=== PATIENT | female | born 1945 | race Caucasian/White ===

== ENCOUNTER → 2017-03-02 | Outpatient (CLI) | payer OTHER ==
[2017-03-02 10:05] LABS: ALT/SGPT 24 U/L (12-78); AST/SGOT 19 U/L (15-37); BLOOD UREA NITROGEN 21 mg/dl (7-18); BUN/CREATININE RATIO 26.3 (10-20); CALCIUM 8.8 mg/dl (8.5-10.1); CARBON DIOXIDE 27 mmol/L (21-32); CHLORIDE 104 mmol/L (98-107); CREATININE 0.78 mg/dl (0.60-1.20); GLUCOSE 134 mg/dl (70-99); HDL CHOLESTEROL 51 mg/dl; SODIUM 137 mmol/L (136-145)
[2017-03-02 10:08] LABS: ALB/GLOB RATIO 0.8 (0.9-2); ALKALINE PHOSPHATASE 87 U/L (45-117); CHOLESTEROL 160 mg/dl (0-200); CHOLESTEROL/HDL RATIO 3.1; LDL CHOLESTEROL CALCULATED 83 mg/dl; TRIGLYCERIDES 129 mg/dl (0-150); VERY LOW DENSITY LIPOPROT CALC 26 mg/dl
[2017-03-02 10:11] LABS: ESTIMATED AVERAGE GLUCOSE 137 mg/dl; HA1C FLAG Normal (Normal)
== END | disposition home or self-care (01) ==
LOC: C.LAB1850 07:27
PROVIDERS: ATTEND Internal Medicine
DX: Z00.00 Encounter for general adult medical examination without abnormal findings (principal); E11.9 Type 2 diabetes mellitus without complications; I10 Essential (primary) hypertension

== ENCOUNTER → 2017-07-28 | Outpatient (CLI) | payer OTHER ==
[2017-07-28 09:59] LABS: HEMOGLOBIN A1C 6.5 % (4.5-5.6)
[2017-07-28 10:15] LABS: ALBUMIN 3.8 gm/dl (3.4-5.0); ALT/SGPT 30 U/L (12-78); BLOOD UREA NITROGEN 19 mg/dl (7-18); CALCIUM 9.5 mg/dl (8.5-10.1); CARBON DIOXIDE 26 mmol/L (21-32); CHOLESTEROL 187 mg/dl (0-200); GLUCOSE 145 mg/dl (70-99); POTASSIUM 3.4 mmol/L (3.5-5.1); SODIUM 133 mmol/L (136-145)
[2017-07-28 10:17] LABS: ALKALINE PHOSPHATASE 72 U/L (45-117); AST/SGOT 25 U/L (15-37); LDL CHOLESTEROL CALCULATED 103 mg/dl; TOTAL PROTEIN 8.5 gm/dl (6.4-8.2)
== END | disposition home or self-care (01) ==
LOC: C.LAB1850 08:22
PROVIDERS: ATTEND Internal Medicine
DX: Z00.00 Encounter for general adult medical examination without abnormal findings (principal); E11.9 Type 2 diabetes mellitus without complications; I10 Essential (primary) hypertension

== ENCOUNTER → 2017-08-16 | Outpatient (CLI) | payer OTHER | END | disposition home or self-care (01) | LOC: C.LAB1850 09:44 | PROVIDERS: ATTEND Internal Medicine | DX: E87.6 Hypokalemia (principal) ==

== ENCOUNTER → 2017-09-06 | Outpatient (CLI) | payer OTHER ==
--- NOTE | 2017-09-06 14:56 | MAMMOGRAPHY REPORT ---
BILATERAL DIGITAL SCREENING MAMMOGRAM TOMOSYNTHESIS WITH CAD: 09/06/2017 CLINICAL HISTORY: Routine screening. Patient has no complaints. TECHNIQUE: Breast tomosynthesis in addition to standard 2D mammography was performed. Current study was also evaluated with a Computer Aided Detection (CAD) system. COMPARISON: Comparison is made to exams dated: 06/03/2015 mammogram, 06/11/2016 mammogram, 4 mammogram, 05/30/2013 mammogram, and 05/29/2012 mammogram - [facility]. BREAST COMPOSITION: There are scattered areas of fibroglandular density in both breasts. FINDINGS: No suspicious masses, calcifications, or areas of architectural distortion are noted in ei ther breast. There has been no significant interval change compared to prior exams. Bilateral asymme tries and scattered bilateral benign-appearing calcifications are not significantly changed. IMPRESSION: ACR BI-RADS CATEGORY 2: BENIGN There is no mammographic evidence of malignancy. A 1 year screening mammogram is recommended. The pa tient will receive written notification of the results. Approximately 10% of breast cancers are not detected with mammography. A negative mammographic report should not delay biopsy if a clinically suggestive mass is present. Jacqueline Hess M.D. ah/:09/06/2017 14:04:10 Clinical Assessment Manager: Sinai KRAMER(Viktor)(M), [facility] letter sent: Normal 1/2 BI-RADS Code: ACR BI-RADS Category 2: Benign
== END | disposition home or self-care (01) ==
LOC: C.MAMM 12:15
PROVIDERS: ATTEND Internal Medicine
DX: Z12.31 Encounter for screening mammogram for malignant neoplasm of breast (principal)

== ENCOUNTER → 2018-01-24 | Outpatient (CLI) | payer OTHER ==
[2018-01-24 09:51] LABS: HEMATOCRIT 38.1 % (37-47); HEMOGLOBIN 12.5 g/dL (12.0-16.0); MEAN CELL VOLUME 89.4 fL (80-100); MEAN CORPUSCULAR HEMOGLOBIN 29.3 pg (25-34); MEAN CORPUSCULAR HGB CONC 32.8 g/dl (32-36); MEAN PLATELET VOLUME 10.9 fL (7.4-10.4); PLATELET COUNT 210 K/uL (130-400); RED CELL DISTRIBUTION WIDTH CV 14.6 % (11.5-14.5); RED CELL DISTRIBUTION WIDTH SD 47.6 fL (36.4-46.3); WHITE BLOOD COUNT 6.51 K/uL (4.8-10.8)
[2018-01-24 10:08] LABS: ALBUMIN 3.5 gm/dl (3.4-5.0); ALKALINE PHOSPHATASE 76 U/L (45-117); ALT/SGPT 29 U/L (12-78); AST/SGOT 19 U/L (15-37); BLOOD UREA NITROGEN 20 mg/dl (7-18); CALCIUM 8.4 mg/dl (8.5-10.1); CARBON DIOXIDE 24 mmol/L (21-32); CHOLESTEROL 157 mg/dl (0-200); CREATININE 0.79 mg/dl (0.60-1.20); GLUCOSE 144 mg/dl (70-99); LDL CHOLESTEROL CALCULATED 78 mg/dl; POTASSIUM 3.9 mmol/L (3.5-5.1); SODIUM 136 mmol/L (136-145); TOTAL PROTEIN 7.7 gm/dl (6.4-8.2)
[2018-01-24 10:20] LABS: HEMOGLOBIN A1C 6.6 % (4.5-5.6)
== END | disposition home or self-care (01) ==
LOC: C.LAB1850 07:53
PROVIDERS: ATTEND Internal Medicine
DX: Z00.00 Encounter for general adult medical examination without abnormal findings (principal); E11.9 Type 2 diabetes mellitus without complications; I10 Essential (primary) hypertension; E87.6 Hypokalemia

== ENCOUNTER 2018-12-25 15:19 | Inpatient (IN) ==
[2018-12-25] MEDS ORDERED: ASPIRIN CHEW 324 MG PO STA (15:58)
[2018-12-25 16:09] LABS: Basophils # (auto) 0.02 K/uL (0-0.2); Basophils % (auto) 0.2 %; Eosinophils # (auto) 0.07 K/uL (0-0.5); Eosinophils % (auto) 0.8 %; Hematocrit (blood only) 34.1 % (37-47); Hemoglobin 11.4 g/dL (12.0-16.0); Immature Granulocytes # (auto) 0.02 K/uL (0.00-0.02); Immature Granulocytes % (auto) 0.2 %; Lymphocytes # (auto) 2.38 K/uL (1.2-3.4); Lymphocytes % (auto) 25.8 %; Mean Corpuscular Hgb Conc 33.4 g/dL (32-36); Mean Corpuscular Volume 90.5 fL (80-100); Mean Platelet Volume 10.5 fL (7.4-10.4); Monocytes # (auto) 0.45 K/uL (0.11-0.59); Monocytes % (auto) 4.9 %; Neutrophils # (auto) 6.29 K/uL (1.4-6.5); Neutrophils % (auto) 68.1 %; Platelet Count 217 K/uL (130-400); RDW Coefficient of Variation 14.9 % (11.5-14.5); RDW Standard Deviation 48.7 fL (36.4-46.3); Red Blood Count 3.77 M/uL (4.2-5.4); White Blood Count 9.23 K/uL (4.8-10.8)
--- NOTE | 2018-12-25 16:17 | XRay Report ---
XR chest 1V portable CLINICAL HISTORY: chest heavy, a fib COMPARISON STUDY: Chest radiograph July 28, 2018. FINDINGS: Patient is rotated. Lung volumes are normal. Lungs are clear. There is no pneumothorax or p leural effusion. Cardiac size is normal. Mediastinal contours are normal. There is no evidence for pu lmonary edema. IMPRESSION: No acute cardiopulmonary findings. Electronically signed by: Jairo Zavala M.D. 12/25/2018 4:16 PM
[2018-12-25 16:31] LABS: Albumin Level 3.3 gm/dl (3.4-5.0); BUN Creatinine Ratio 33.4 (10-20); Calcium 8.9 mg/dl (8.5-10.1); Creatinine Clr Calc Pharmacy 46.4 ml/min; Est GFR (African American) 47.2; Est GFR (Non-African American) 40.8; Magnesium 1.9 mg/dl (1.8-2.4); Potassium 4.1 mmol/L (3.5-5.1)
[2018-12-25 16:47] LABS: Albumin Globulin Ratio 0.7 (0.9-2); Bilirubin,Total 0.4 mg/dl (0.2-1); Globulin 4.5 gm/dl (2.5-4.0); Phosphorus 2.5 mg/dl (2.5-4.9); Total Protein 7.8 gm/dl (6.4-8.2); Troponin I 13.3 ng/ml (0-0.045)
--- NOTE | 2018-12-25 17:32 | History & Physical Report ---
Date of Service December 25, 2018 Assessment & Plan (1) Elevated troponin: 73yo pleasant woman with a PMHx of Afib, HTN, HLD, DMII who presents with chest heaviness found to have elevated troponins. Elevated Trop -trend x3 -consult cardiology -?possible cath tomorrow -NPO after midnight Afib -currently NSR -Hold anticoagulation with eliquis. Cont metoprolol, digoxin (AM level pending) -TSH normal -Last ECHO Jul 2018 shows EF of 60-65% with L ventricular hypertrophy, mild-mod MR and mod dilated L atrium. HTN -well controlled currently -On metoprolol for rate control of a fib, will cont -Hold home losartan-HCTZ DMII -ISS. Hold home metformin HLD -continue atorvastatin, increased to 80 mg from 20mg Anemia -cont home iron 325 mg daily -stable H/H, cont trend FEN/GI: NPO after midnight DVT Prophylaxis: Eliquis Code Status: Full code Dispo: Tele History of Present Illness Primary Care Provider: Brian Byrnes MD 73 y/o F with PMH Afib, DM2, HTN, HLD presents to [facility] with complaints of chest pressure. Of note, pt was admitted in Jul 2018 for new onset Afib with RVR and was dc'd on Eliquis 5 mg BID and metoprolol 75 mg BID. Pt states that this AM, felt heaviness in her chest all of a sudden. Checked home BP cuff, which alerted pt that it detected an irregular rhythm. Pt subsequently called cardiology office, which recommended to pt to recheck BP and come into ER if still irregular rhythm. Pt has associated R arm achiness, and admits to sweating, nausea, and fatigue. Last such occurrence was in September, which resolved on its own. Pt notes recent travel to [facility] for wedding over the weekend and had some nausea on car ride home yesterday, which she states she normally only gets when she feels she is in A fib. Pt was last seen by Dr. Uribe 11/14 and recommended to cont current Afib management and follow-up in 12 months. Pt denies any other acute concerns or complaints. ER Course: EKG: NSR, T wave inversion anterolateral leads. CXR- No acute cardiopulmonary findings. Pt given ASA 324 mg. Labs remarkable for trop 13.3. Surgical Hx: Hysterectomy. Social: No history of drinking or smoking - lives with her . Family: Mother had a history of AF, father following an DE. Allergies Allergy/AdvReac Type Severity Reaction Status Date / Time Sulfa (Sulfonamide Allergy Swelling Unverified 12/25/18 16:59 Antibiotics) of Lip/Tongue/Throat sulfamethoxazole Allergy Swelling Unverified 12/25/18 16:59 [From Bactrim] of Lip/Tongue/Throat trimethoprim [From Bactrim] Allergy Swelling Unverified 12/25/18 16:59 of Lip/Tongue/Throat Home Medications Home Medications Medication Instructions Recorded Confirmed Type Restasis 1 drp OPB BID 07/25/18 12/25/18 History atorvastatin 20 mg PO HS 07/25/18 12/25/18 History cholecalciferol (vitamin D3) 2,000 unit PO QAM 07/25/18 12/25/18 History [Vitamin D3] latanoprost 1 drp OPB PM 07/25/18 12/25/18 History losartan-hydrochlorothiazide 1 tab PO QAM 07/25/18 12/25/18 History metformin 1,000 mg PO BIDM 07/25/18 12/25/18 History multivitamin 1 tab PO QAM 07/25/18 12/25/18 History omega 6-vdm-dvg-fish oil [Fish Oil] 1 cap PO QAM 07/25/18 12/25/18 History potassium chloride 10 meq PO QAM 07/25/18 12/25/18 History apixaban [Eliquis] 5 mg PO BID #30 tab 08/01/18 12/25/18 Rx ascorbic acid (vitamin C) 250 mg 250 mg PO DAILY tab 11/28/18 12/25/18 History tablet digoxin 125 mcg tablet 125 mcg PO DAILY #90 tab 11/28/18 12/25/18 History ferrous sulfate 325 mg (65 mg 325 mg PO DAILY tab 11/28/18 12/25/18 History iron) tablet metoprolol tartrate 75 mg tablet 75 mg PO BID #30 tab 11/28/18 12/25/18 History docusate sodium [Stool Softener] 100 mg PO DAILY 12/25/18 12/25/18 History Past Med/Surg History Medical History A-fib (Acute) Anemia (Acute) Diabetes mellitus (Acute) Diverticulosis (Acute) Hypertension (Acute) Hypokalemia (Acute) Low back ache (Acute) On anticoagulant therapy (Acute) Acute kidney injury (Inactive) Acute pyelonephritis (Inactive) HLD (hyperlipidemia) HTN (hypertension) Family History Other Family history non-contributory Social History Preferred Language: Arabic Communication Ability: Effective Beliefs That Will Affect Care: Pentec[employer]al Pentec[employer]al Beliefs: [facility] Hospitalist marital status: Current Living Situation: Spouse current occupational status: retired Feels Safe at Home: Yes Smoking Status: Never smoker Hx Alcohol Use: No Hx Substance Use: No Review of Systems Review of Systems: All systems reviewed & are unremarkable except as noted in HPI & below Physical Exam Constitutional: WD/WN, vitals as above Eyes: PERRL, conjunctivae normal, anicteric sclerae ENMT: external ear and nose normal, oropharynx normal Respiratory: normal respiratory effort, lungs clear to auscultation Cardiovascular: RRR, no murmur, no edema Mild tenderness to deep palpation over sternum Gastrointestinal (Abdomen): normal bowel sounds, soft, nontender, no hepatosplenomegaly Skin: no rashes, warm and dry Psychiatric: A+Ox3, euthymic affect Lymphatic: No LE swelling, no calf tenderness Results & Data Vital Signs (Past 12 Hours) Vital Signs Temp Pulse Resp BP Pulse Ox 12/25/18 16:23 98 12/25/18 15:26 36.7 C 140 H 20 109/67 99 Laboratory Results Laboratory Results - last 24 hr 12/25/18 12/25/18 15:49 15:49 WBC 9.23 RBC 3.77 L Hgb 11.4 L Hct 34.1 L MCV 90.5 MCH 30.2 MCHC 33.4 RDW Std Deviation 48.7 H RDW Coeff of Isela 14.9 H Plt Count 217 MPV 10.5 H Immature Gran % (Auto) 0.2 Neut % (Auto) 68.1 Lymph % (Auto) 25.8 [place] % (Auto) 4.9 Eos % (Auto) 0.8 Baso % (Auto) 0.2 Immature Gran # (Auto) 0.02 Neut # (Auto) 6.29 Lymph # (Auto) 2.38 [place] # (Auto) 0.45 Eos # (Auto) 0.07 Baso # (Auto) 0.02 Sodium 137 Potassium 4.1 Chloride 106 Carbon Dioxide 21 Anion Gap 10.0 BUN 43 H Creatinine 1.29 H Est Cr Clr Drug Dosing 46.4 Est GFR ( Amer) 47.2 Est GFR (Non-Af Amer) 40.8 BUN/Creatinine Ratio 33.4 H Glucose 255 H Calcium 8.9 Phosphorus 2.5 Magnesium 1.9 Total Bilirubin 0.4 AST 45 H ALT 30 Alkaline Phosphatase 91 Troponin I 13.300 H* Total Protein 7.8 Albumin 3.3 L Globulin 4.5 H Albumin/Globulin Ratio 0.7 L TSH 3.550 Code Status & VTE Plan Code Status Full Code Supervising Physician Co-Signing Physician Notes Resident Physician Supervision Note: I discussed with Dr Keren Singh and agree with findings and plan as documented in the note. Any exceptions or clarifications are listed here: None Patient presented with atypical cardiac symptoms atrial fibrillation with rapid response as documented in the home monitor chest discomfort and some right arm discomfort mild nausea. She is a history of A. fib so the rapid heart rate was not overly concerning for her with the chest discomfort prompted her to present to the ER where she had some new EKG changes that were non-infarction and elevation of her troponin. Vital signs are stable Cardiac exam is regular with a systolic murmur Lungs are clear without crackles Abdomen is normoactive bowel sounds soft and nontender Extremities without edema Acute DE likely N STEMI previous history of A. fib RVR. We will hold patient's Eliquis and start heparin likely in the morning but will start at this evening of her chest pain recurs continuing her beta-bridget aspirin and oxygen therapy. Cardiology consultation for risk stratification which could include left heart cath versus stress testing. Holding her metformin insulin sliding scale watching her blood pressure and reinstituting ARB if needed Documented By: Kofi Interiano PG Care Time/CCT Total # of Minutes Spent Total Time Spent with Patient: Total time spent is greater than 50% in coordination of care (as documented) at patient's floor/unit and/or counseling patient: Resident Activity Tracking Resident Involvement: Resident Care Provided Care Provided: Adult Hospital Medicine
--- NOTE | 2018-12-25 19:05 | Progress Note ---
Date of Service December 25, 2018 Received turnover for patient regarding her chest pressure and elevated troponin. Spoke with both admitting doctors. Patient will have her Eliquis held. Her last dose was this morning. No reports of bleeding. Discussed case with Dr. Delgado. Will start heparin without bolus this evening. Mehreen Soares, PGY3 Overnight call Results & Data Vital Signs (Past 12 Hours) Vital Signs Temp Pulse Resp BP Pulse Ox 12/25/18 18:30 67 24 120/64 99 12/25/18 18:00 72 17 111/59 L 98 12/25/18 17:49 70 20 123/67 98 12/25/18 17:30 73 17 99 12/25/18 17:00 65 16 98 12/25/18 16:30 72 22 97 12/25/18 16:24 77 22 115/62 12/25/18 16:23 98 12/25/18 16:00 84 25 H 98 12/25/18 15:54 81 17 96 12/25/18 15:26 36.7 C 140 H 20 109/67 99
--- NOTE | 2018-12-25 19:19 | Emergency Department Note ---
Entered by Ghada Mckeon acting as a scribe for History of Present Illness General Chief complaint: Cardiac Assessment Stated complaint: IRRGULAR HEARTBEAT AFIB PT,CHEST HEAVINESS Source: patient History of Present Illness Onset (ago): hour(s) (just prior to arrival) Location: chest Radiation: extremity (right upper achiness) Severity: similar to prior episodes Pain Consistency: + other (episode ) Maximum Pain Intensity: 2 Quality: + other (heaviness) Associated symptoms: + diaphoresis and + nausea/vomiting (positive nausea; negative vomiting) The patient is a 73 year old female who presents to the Emergency Room with complaints of an episode of chest pain that began just prior to arrival. The patient describes this pain as heaviness. She states that she has some achiness in her right arm. The patient reports feeling nauseous and sweating during this time. The patient states that this is similar to prior episodes of atrial fib. The patient states that over the past several days she has taken her medication later than usual over the past several days. She denies recent alcohol. The patient states that she is on Eliquis and metoprolol. Home Medications Home Medications Medication Instructions Recorded Confirmed Type Restasis 1 drp OPB BID 07/25/18 12/25/18 History atorvastatin 20 mg PO HS 07/25/18 12/25/18 History cholecalciferol (vitamin D3) 2,000 unit PO QAM 07/25/18 12/25/18 History [Vitamin D3] latanoprost 1 drp OPB PM 07/25/18 12/25/18 History losartan-hydrochlorothiazide 1 tab PO QAM 07/25/18 12/25/18 History metformin 1,000 mg PO BIDM 07/25/18 12/25/18 History multivitamin 1 tab PO QAM 07/25/18 12/25/18 History omega 7-hox-kxl-fish oil [Fish Oil] 1 cap PO QAM 07/25/18 12/25/18 History potassium chloride 10 meq PO QAM 07/25/18 12/25/18 History apixaban [Eliquis] 5 mg PO BID #30 tab 08/01/18 12/25/18 Rx ascorbic acid (vitamin C) 250 mg 250 mg PO DAILY tab 11/28/18 12/25/18 History tablet digoxin 125 mcg tablet 125 mcg PO DAILY #90 tab 11/28/18 12/25/18 History ferrous sulfate 325 mg (65 mg 325 mg PO DAILY tab 11/28/18 12/25/18 History iron) tablet metoprolol tartrate 75 mg tablet 75 mg PO BID #30 tab 11/28/18 12/25/18 History docusate sodium [Stool Softener] 100 mg PO DAILY 12/25/18 12/25/18 History Allergies Allergy/AdvReac Type Severity Reaction Status Date / Time Sulfa (Sulfonamide Allergy Swelling Unverified 12/25/18 16:59 Antibiotics) of Lip/Tongue/Throat sulfamethoxazole Allergy Swelling Unverified 12/25/18 16:59 [From Bactrim] of Lip/Tongue/Throat trimethoprim [From Bactrim] Allergy Swelling Unverified 12/25/18 16:59 of Lip/Tongue/Throat Past Med/Surg History Medical History A-fib (Acute) Anemia (Acute) Diabetes mellitus (Acute) Diverticulosis (Acute) Hypertension (Acute) Hypokalemia (Acute) Low back ache (Acute) On anticoagulant therapy (Acute) Acute kidney injury (Inactive) Acute pyelonephritis (Inactive) HLD (hyperlipidemia) HTN (hypertension) Family History Other Family history non-contributory Social History Preferred Language: Indonesian Communication Ability: Effective 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 and A total of 10 systems reviewed and were otherwise negative Physical Exam Vital Signs Vital Signs - 24 hr 12/25/18 15:26 12/25/18 15:54 12/25/18 16:00 Temperature 36.7 C Temperature Source Oral Sepsis Recent Fever Within 48 Hours No Sepsis Action Taken by Nursing No Action Required Pulse Rate 140 H 81 84 Pulse Rate from SpO2 Sensor 82 84 Respiratory Rate 20 17 25 H Blood Pressure 109/67 Blood Pressure Mean 81 Pulse Oximetry 99 96 98 Oxygen Delivery Method Room Air 12/25/18 16:23 12/25/18 16:24 12/25/18 16:30 Temperature Temperature Source Sepsis Recent Fever Within 48 Hours Sepsis Action Taken by Nursing Pulse Rate 77 72 Pulse Rate from SpO2 Sensor 72 Respiratory Rate 22 22 Blood Pressure 115/62 Blood Pressure Mean 79 Pulse Oximetry 98 97 Oxygen Delivery Method Room Air 12/25/18 17:00 12/25/18 17:30 12/25/18 17:49 Temperature Temperature Source Sepsis Recent Fever Within 48 Hours Sepsis Action Taken by Nursing Pulse Rate 65 73 70 Pulse Rate from SpO2 Sensor 66 75 72 Respiratory Rate 16 17 20 Blood Pressure 123/67 Blood Pressure Mean 85 Pulse Oximetry 98 99 98 Oxygen Delivery Method 12/25/18 18:00 Temperature Temperature Source Sepsis Recent Fever Within 48 Hours Sepsis Action Taken by Nursing Pulse Rate 72 Pulse Rate from SpO2 Sensor 72 Respiratory Rate 17 Blood Pressure 111/59 L Blood Pressure Mean 76 Pulse Oximetry 98 Oxygen Delivery Method Vital signs reviewed. General: Somewhat ill-appearing elderly 73 year old female, in no significant distress. Obese. HEENT: No scleral icterus, PERRLA, neck supple. Atraumatic. Cardiovascular: Regular rate and rhythm, no extra sounds. Pulmonary: Clear to auscultation bilaterally, normal work of breathing. Abdomen: Obese, soft, nontender, nondistended, positive bowel sounds. Musculoskeletal: Atraumatic. Minimal edema in the bilateral lower extremities. Neurologic: Patient awake alert and oriented x 3 Skin: Warm, dry, no rash Course 1558: Past medical records reviewed. The patient was evaluated in room C8. A complete history and physical exam was performed. 1704: I discussed the case with Dr. Interiano[facility] Hospitalist who accepts the patient for further evaluation. 1708: I checked on and updated the patient on all results. The patient is in agreement with the treatment plan. Administered Medications Atorvastatin Calcium (Lipitor) 80 mg PO HS [facility] Stop: 01/24/19 20:59 Last Admin: 12/25/18 21:04 Dose: 80 mg Documented by: [id number] Heparin Sodium/Dextrose (Heparin Sodium/Dextrose) 25,000 units in 500 mls @ 27 mls/hr IV .[id number] SEAN; Protocol Stop: 01/24/19 21:14 Last Admin: 12/25/18 21:17 Dose: 1,350 units/hr, 27 mls/hr Documented by: [id number] Cosigned by: [id number] Latanoprost (Xalatan Oph) 1 drops OPB PM SEAN Stop: 01/24/19 20:59 Last Admin: 12/25/18 21:05 Dose: 1 drops Documented by: [id number] Metoprolol Tartrate (Lopressor) 75 mg PO BID SEAN Stop: 01/24/19 20:59 Last Admin: 12/25/18 21:09 Dose: 75 mg Documented by: [id number] Discontinued Medications Aspirin (Aspirin) 324 mg PO NOW STA Stop: 12/25/18 15:59 Last Admin: 12/25/18 16:22 Dose: 324 mg Documented by: [id number] Insulin Aspart (Novolog Flexpen) 0 units SC 2100 ONE Stop: 12/25/18 21:01 Last Admin: 12/25/18 21:11 Dose: 9 units Documented by: [id number] Cosigned by: [id number] Medical Decision Making Differential Diagnosis Differential diagnosis: Etiologies such as premature contractions, electrolyte abnormality, cardiac dysrhythmia, thyroid dysfunction, pulmonary embolism, infection, gastrointestinal, as well as others were entertained. Medical Records Attestation: I reviewed the patient's medical records. Home Medications Current Medication List: was personally reviewed by me Laboratory Data Attestation: I reviewed the patient's lab results. Result diagrams: 12/25/18 15:49 12/25/18 15:49 Lab Results 12/25/18 12/25/18 Range/Units 15:49 15:49 WBC 9.23 (4.8-10.8) K/uL RBC 3.77 L (4.2-5.4) M/uL Hgb 11.4 L (12.0-16.0) g/dL Hct 34.1 L (37-47) % MCV 90.5 (80-100) fL MCH 30.2 (25-34) pg MCHC 33.4 (32-36) g/dL RDW Std Deviation 48.7 H (36.4-46.3) fL RDW Coeff of Isela 14.9 H (11.5-14.5) % Plt Count 217 (130-400) K/uL MPV 10.5 H (7.4-10.4) fL Immature Gran % (Auto) 0.2 % Neut % (Auto) 68.1 % Lymph % (Auto) 25.8 % [place] % (Auto) 4.9 % Eos % (Auto) 0.8 % Baso % (Auto) 0.2 % Immature Gran # (Auto) 0.02 (0.00-0.02) K/uL Neut # (Auto) 6.29 (1.4-6.5) K/uL Lymph # (Auto) 2.38 (1.2-3.4) K/uL [place] # (Auto) 0.45 (0.11-0.59) K/uL Eos # (Auto) 0.07 (0-0.5) K/uL Baso # (Auto) 0.02 (0-0.2) K/uL Sodium 137 (136-145) mmol/L Potassium 4.1 (3.5-5.1) mmol/L Chloride 106 (98-107) mmol/L Carbon Dioxide 21 (21-32) mmol/L Anion Gap 10.0 (3-11) BUN 43 H (7-18) mg/dl Creatinine 1.29 H (0.6-1.2) mg/dl Est Cr Clr Drug Dosing 46.4 ml/min Est GFR ( Amer) 47.2 Est GFR (Non-Af Amer) 40.8 BUN/Creatinine Ratio 33.4 H (10-20) Glucose 255 H (70-99) mg/dl Calcium 8.9 (8.5-10.1) mg/dl Phosphorus 2.5 (2.5-4.9) mg/dl Magnesium 1.9 (1.8-2.4) mg/dl Total Bilirubin 0.4 (0.2-1) mg/dl AST 45 H (15-37) U/L ALT 30 (12-78) U/L Alkaline Phosphatase 91 (45-117) U/L Troponin I 13.300 H* (0-0.045) ng/ml Total Protein 7.8 (6.4-8.2) gm/dl Albumin 3.3 L (3.4-5.0) gm/dl Globulin 4.5 H (2.5-4.0) gm/dl Albumin/Globulin Ratio 0.7 L (0.9-2) TSH 3.550 (0.300-4.500) uIu/ml Imaging Data Radiologist's Impression: Radiology results as stated below per my review and the radiologist's interpretation: XR chest 1V portable CLINICAL HISTORY: chest heavy, a fib COMPARISON STUDY: Chest radiograph July 28, 2018. FINDINGS: Patient is rotated. Lung volumes are normal. Lungs are clear. There is no pneumothorax or pleural effusion. Cardiac size is normal. Mediastinal contours are normal. There is no evidence for pulmonary edema. IMPRESSION: No acute cardiopulmonary findings. Electronically signed by: Jairo Zavala M.D. 12/25/2018 4:16 PM ECG Data Attestation: I personally reviewed and interpreted this ECG as follows: Indication: chest pain Rate (beats per minute): 95 Rhythm: normal sinus Findings: + other (low voltage) and + T-wave inversion (Lateral) Blood Pressure Blood Pressure Findings: Normal blood pressure MDM Narrative This patient was evaluated and appeared to be in no significant distress. IV access was obtained and laboratory work was drawn. The patient was placed on the pot washer and found to be in a normal sinus rhythm. Heart rate had greatly improved from triage. Chest x-ray was performed and is negative for acute findings. Laboratory work is surprisingly significant for troponin of 13. 3. This likely represents a subacute TN. Patient was given 324 mg of oral aspirin. She had taken her Eliquis at 7 AM, therefore no IV heparin drip was initiated. I did speak with the hospitalist service, Dr. Interiano. Patient will be evaluated for admission and further management. Currently the patient remains pain-free and is aware of the plan. Impression & Plan AMI (acute myocardial infarction), Elevated troponin, Abnormal ECG Discharge Plan Visit Data *Final* Discharge Date/Time: 12/25/18 19:23 Chief Complaint: Cardiac Assessment Stated Complaint: IRRGULAR HEARTBEAT AFIB PT,CHEST HEAVINESS ED Provider: Cari Guzmán Discharge Problem: AMI (acute myocardial infarction), Elevated troponin, Abnormal ECG Patient Disposition: Admitted As Inpatient Discharge Instructions Interventions: ED Discharge Assessment Last Done: 12/25/18 19:23 Discharge Problem: AMI (acute myocardial infarction) Qualifiers: Myocardial infarction type: unspecified Involved coronary artery: unspecified coronary artery Qualified Code(s): I21.9 - Acute myocardial infarction, unspecified The scribe's documentation has been prepared under my direction and personally reviewed by me in its entirety. I confirm that the note above accurately reflects all work, treatment, procedures, and medical decision making performed by me.
[2018-12-25] MEDS ORDERED: ACETAMINOPHEN 325 MG TAB PO PRN (19:53)
[2018-12-25] MEDS ORDERED: ALUMINUM/MAGNESIUM SUSP 30 ML UDC PO PRN (19:53)
[2018-12-25] MEDS ORDERED: Heparin IV Standard *NO* Bolus IV ONE (19:53)
[2018-12-25] MEDS ORDERED: ONDANSETRON INJ 2 MG/ML 2 ML VIAL IV PRN (19:53)
[2018-12-25] MEDS ORDERED: PHARMACY GLYCEMIC MGMT CONSULT PRN (20:35)
[2018-12-25] MEDS ORDERED: DEXTROSE 50% 50 ML SYRINGE IV PRN (21:00)
[2018-12-25] MEDS ORDERED: CARBOHYDRATES FOR HYPOGLYCEMIA PO PRN (21:00)
[2018-12-25] MEDS ORDERED: NON-FORMULARY MEDICATION (Cyclosporine [Restasis] 1 DROPS) OPB SCH (21:00)
[2018-12-25] MEDS ORDERED: INSULIN ASPART 100 UNITS/ML 3 ML PEN SC ONE (21:00)
[2018-12-25] MEDS ORDERED: GLUCOSE 10 TABS/TUBE PO PRN (21:00)
[2018-12-25] MEDS ORDERED: GLUCAGON FOR INJ 1 MG VIAL IM PRN (21:00)
[2018-12-25] MEDS ORDERED: GLUCOSE 40% GEL 15 GM TUBE PO PRN (21:00)
[2018-12-25] MEDS: ATORVASTATIN 40 MG TAB PO SCH (21:04)
[2018-12-25] MEDS: LATANOPROST 0.005% OP SOLN 2.5 ML BTL OPB SCH (21:05)
[2018-12-25] MEDS: METOPROLOL TARTRATE 25 MG TAB PO SCH (21:09)
[2018-12-25] MEDS: Heparin Adult STANDARD Wt-Based Dextrose 5% 25,000 units/500 mL IV SCH (21:17)
[2018-12-26] MEDS: INSULIN ASPART 100 UNITS/ML 3 ML PEN SC SCH ×4 (00:14→20:43)
[2018-12-26 03:29] LABS: Basophils # (auto) 0.02 K/uL (0-0.2); Basophils % (auto) 0.2 %; Eosinophils # (auto) 0.16 K/uL (0-0.5); Eosinophils % (auto) 1.7 %; Hematocrit (blood only) 31.9 % (37-47); Hemoglobin 10.5 g/dL (12.0-16.0); Immature Granulocytes # (auto) 0.02 K/uL (0.00-0.02); Immature Granulocytes % (auto) 0.2 %; Lymphocytes # (auto) 3.13 K/uL (1.2-3.4); Lymphocytes % (auto) 32.4 %; Mean Corpuscular Hgb Conc 32.9 g/dL (32-36); Mean Corpuscular Volume 90.6 fL (80-100); Mean Platelet Volume 10.3 fL (7.4-10.4); Monocytes # (auto) 0.69 K/uL (0.11-0.59); Monocytes % (auto) 7.1 %; Neutrophils # (auto) 5.64 K/uL (1.4-6.5); Neutrophils % (auto) 58.4 %; Platelet Count 182 K/uL (130-400); RDW Coefficient of Variation 14.9 % (11.5-14.5); RDW Standard Deviation 48.8 fL (36.4-46.3); Red Blood Count 3.52 M/uL (4.2-5.4); White Blood Count 9.66 K/uL (4.8-10.8)
[2018-12-26 03:50] LABS: Partial Thromboplastin Ratio 2.2
[2018-12-26 03:51] LABS: BUN Creatinine Ratio 40.3 (10-20); Calcium 8.7 mg/dl (8.5-10.1); Creatinine Clr Calc Pharmacy 57.4 ml/min; Est GFR (African American) 61.3; Est GFR (Non-African American) 52.9; Potassium 3.9 mmol/L (3.5-5.1)
[2018-12-26 03:53] LABS: Partial Thromboplastin Time 58.7 Seconds (21.0-31.0)
[2018-12-26 03:59] LABS: Troponin I 15.3 ng/ml (0-0.045)
[2018-12-26 06:44] LABS: Estimated Average Glucose 166 mg/dl; Hemoglobin A1C 7.4 % (4.5-5.6)
[2018-12-26] MEDS ORDERED: INSULIN ASPART 100 UNITS/ML 3 ML PEN SC ONE (08:00)
--- NOTE | 2018-12-26 08:11 | Hospitalist Progress Note ---
Date of Service December 26, 2018 Assessment & Plan (1) Elevated troponin: 73yowith a PMHx of Afib, HTN, HLD, DMII who presents with chest heaviness found to have elevated troponins. 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 Cont metoprolol, digoxin low level may explain rapid rate) -TSH normal -Last ECHO Jul 2018 shows EF of 60-65% with L ventricular hypertrophy, mild-mod MR and mod dilated L atrium. HTN metoprolol for rate control of a fib, will cont -Held home losartan-HCTZ on admission DMII -ISS. Hold home metformin HLD -continue atorvastatin, increased to 80 mg from 20mg Anemia -cont home iron 325 mg daily -stable H/H, cont trend Acute kidney injury evidenced by elevation of her creatinine from her baseline, will pay attention and medication dosing is still hydration if needed DVT Prophylaxis:heparin Code Status: Full code Subjective this pt had a small amount of precordial discomfort overnight but repeat troponin was going up, I personally spoke to cardiology and they will take for LHC and overnight she was placed on iv heparin therapeutic infusion. She otherwise has no issues Review of Systems Review of Systems: ROS: well nourished well developed. No double vision blurry vision No problems with speech or swallowing No palpitations, has some mild left-sided chest pain which resolved No Wheezing or breathing issues No abdominal pain nausea vomiting diarrhea changes in appetite or weight No burning urine urine frequency or changes in color No focal joint pain or muscle pain No skin rashes or oral lesions No unusual bruising or bleeding No focused back pain or numbness or loss of strength No changes in memory or confusion Physical Exam Physical Exam: The patient appeared well nourished and normally developed. Vital signs as documented. Head exam is unremarkable. normocephalic, atraumatic Neck is without jugular venous distension, thyromegaly, or lymphademopathy Lungs are clear to auscultation and percussion. Cardiac exam reveals Rhythm is regular. Remains in sinus rhythm Abdominal exam reveals normal bowel sounds, no masses, no organomegaly Extremities are nonedematous and both pedal pulses are present Neurologic exam is A&Ox3, no focal deficits, strength is equal bilateral Psychologically seems neither anxious or depressed Skin is warm Dry without bruises or lesions Results & Data Vital Signs (Past 12 Hours) Vital Signs Temp Pulse Pulse Resp BP Pulse Ox 12/26/18 07:51 36.7 C 63 18 112/60 97 12/26/18 03:29 36.9 C 61 17 120/63 97 12/25/18 23:25 56 L 12/25/18 23:12 36.8 C 57 L 17 109/53 L 97 PG Care Time/CCT Total # of Minutes Spent Total Time Spent with Patient: Total time spent is greater than 50% in coordination of care (as documented) at patient's floor/unit and/or counseling patient:
[2018-12-26] MEDS: METOPROLOL TARTRATE 25 MG TAB PO SCH ×2 (08:35→20:41)
[2018-12-26] MEDS: FERROUS SULFATE 325 MG TAB PO SCH (08:35)
[2018-12-26] MEDS: ASCORBIC ACID 500 MG TAB PO SCH (08:36)
[2018-12-26] MEDS: POTASSIUM CHLORIDE 10 MEQ TABCR PO SCH (08:36)
[2018-12-26] MEDS: DOCUSATE SODIUM 100 MG CAP PO SCH (08:36)
[2018-12-26] MEDS: MULTIVITAMIN TAB PO SCH (08:36)
[2018-12-26] MEDS: CHOLECALCIFEROL 1,000 UNITS TAB PO SCH (08:36)
[2018-12-26] MEDS: OMEGA-3 (PURIFIED FISH OIL) 1 GM CAP PO SCH (08:36)
--- NOTE | 2018-12-26 09:19 | Cardiology Consultation ---
Date of Consultation December 26, 2018 Assessment & Plan (1) Non-ST elevation (NSTEMI) myocardial infarction: Had anginal symptoms that persisted for several hours yesterday with elevated troponins and abnormal ECG, suggesting LAD territory ischemia. Echocardiogram ordered. Aspirin 81 mg daily ordered. Cardiac catheterization recommended. Risks and benefits were discussed with her and she was made aware that CT surgery is not available at this facility. She is agreeable to undergo cardiac catheterization, and PCI if deemed appropriate, at this facility. High- intensity statin therapy. Continue beta-bridget. Currently asymptomatic. (2) Paroxysmal atrial fibrillation: Diagnosed with paroxysmal atrial fibrillation in July of 2018. Based on home BP cuff, likely had another episode of atrial fibrillation yesterday but was in sinus rhythm when she arrived here. Continue anticoagulation in the form of heparin and can resume Eliquis on discharge. Continue beta-bridget. Will defer atrial fibrillation treatment to her prop maker, Dr. Uribe. Currently in sinus rhythm. (3) Hypertension: Blood pressure adequately controlled. Continue current regimen. She takes beta-bridget and also losartan. Continue losartan. (4) Mitral regurgitation: Non severe on July 2018 echo. Repeat echo as noted above. (5) Dyslipidemia: High-intensity statin therapy recommended for suspected underlying CAD in the setting of NSTEMI. Continue atorvastatin 80 mg daily, up from her home dose of 20 mg. Disposition: Cardiology will continue to follow. Cardiac catheterization being planned for later today. Patient care discussed with Dr. Interiano and also Dr. Uribe. Primary supervisor special effects is Dr. Uribe. Highly complex medical issues. Thank you for allowing me to participate in the care of your patient. Please call for any other questions or concerns. Sincerely, Winston Navarro M.D. History of Present Illness Reason for Consultation: NSTEMI Requesting Physician: Dr. Singh Attending Physician: Kofi Interiano MD History of Present Illness Mrs. Ruvalcaba is a pleasant 73-year-old female with a history significant for paroxysmal atrial fibrillation on anticoagulation therapy, hypertension, dyslipidemia, and type 2 diabetes who presented to [facility] with substernal chest pressure and elevated troponin. Her primary supervisor special effects is Dr. Uribe. She was hospitalized in July of 2018 with atrial fibrillation rapid ventricular response. She was discharged home on rate-controlling medications in the form of digoxin and metoprolol as well as anticoagulation therapy. She converted spontaneously at home shortly thereafter. Yesterday when she woke up she felt nauseated. It reminded her of her previous atrial fibrillation. She checked her blood pressure and on her blood pressure cuff it indicated that she had an irregular heart rate. Her heart rate was in the 140s, decreased to the 130s, the 90s, the 60s, and then back up into the 130s. She had developed substernal chest pressure with right arm achiness and numbness. The pressure occurred while doing laundry. She was also diaphoretic but not short of breath and no other radiation of the pain. The pain persisted for several hours, starting at 10:00 a.m. and she eventually went to the emergency department at approximately 3:00 p.m.. The pain persisted and gradually resolved by evening while in the hospital. Because the pain persisted, she was started on a heparin drip by the primary hospitalist service. She was noted to have T-wave inversions throughout the anterior leads, which were new compared to 07/28/2018 ECG. Her initial troponin was 13.3 and has incr eased to 15.3. She denies any further chest discomfort. She denies shortness of breath, syncope, edema, or bleeding such as melena, hematochezia, or hematuria. She did have some palpitations described as a fluttering sensation yesterday intermittently throughout the day and described them as mild. She felt transient dizziness when bending over to do her laundry but otherwise denies near syncope. She denies any recent fevers or vomiting. Review of systems: As above. Review of systems otherwise negative/unremarkable. Social history: Denies tobacco, alcohol, or drug abuse. She is lives at home with her . No children. No family present at the bedside. Family history: Father had OR x2. Allergies Allergy/AdvReac Type Severity Reaction Status Date / Time Sulfa (Sulfonamide Allergy Swelling Unverified 12/25/18 16:59 Antibiotics) of Lip/Tongue/Throat sulfamethoxazole Allergy Swelling Unverified 12/25/18 16:59 [From Bactrim] of Lip/Tongue/Throat trimethoprim [From Bactrim] Allergy Swelling Unverified 12/25/18 16:59 of Lip/Tongue/Throat Home Medications Home Medications Medication Instructions Recorded Confirmed Type Restasis 1 drp OPB BID 07/25/18 12/25/18 History atorvastatin 20 mg PO HS 07/25/18 12/25/18 History cholecalciferol (vitamin D3) 2,000 unit PO QAM 07/25/18 12/25/18 History [Vitamin D3] latanoprost 1 drp OPB PM 07/25/18 12/25/18 History losartan-hydrochlorothiazide 1 tab PO QAM 07/25/18 12/25/18 History metformin 1,000 mg PO BIDM 07/25/18 12/25/18 History multivitamin 1 tab PO QAM 07/25/18 12/25/18 History omega 6-wor-egb-fish oil [Fish Oil] 1 cap PO QAM 07/25/18 12/25/18 History potassium chloride 10 meq PO QAM 07/25/18 12/25/18 History apixaban [Eliquis] 5 mg PO BID #30 tab 08/01/18 12/25/18 Rx ascorbic acid (vitamin C) 250 mg 250 mg PO DAILY tab 11/28/18 12/25/18 History tablet digoxin 125 mcg tablet 125 mcg PO DAILY #90 tab 11/28/18 12/25/18 History ferrous sulfate 325 mg (65 mg 325 mg PO DAILY tab 11/28/18 12/25/18 History iron) tablet metoprolol tartrate 75 mg tablet 75 mg PO BID #30 tab 11/28/18 12/25/18 History docusate sodium [Stool Softener] 100 mg PO DAILY 12/25/18 12/25/18 History Patient History Medical History A-fib (Acute) Anemia (Acute) Diabetes mellitus (Acute) Diverticulosis (Acute) Hypertension (Acute) Hypokalemia (Acute) Low back ache (Acute) On anticoagulant therapy (Acute) Acute kidney injury (Inactive) Acute pyelonephritis (Inactive) HLD (hyperlipidemia) HTN (hypertension) Family History Other Family history non-contributory Social History Preferred Language: Maori Communication Ability: Effective Warp Hanger Required: No Beliefs That Will Affect Care: None marital status: Current Living Situation: Spouse Current Living Situation Comment: house current occupational status: retired Feels Safe at Home: Yes Safety Concerns: Feels Safe At This Time Smoking Status: Never smoker Hx Alcohol Use: No Hx Substance Use: No Physical Exam Physical Exam: Gen.: No acute distress. Alert and oriented. HEENT: Anicteric sclera. Neck: No JVD. No bruits. Normal carotid upstrokes bilaterally. Cardiac: PMI was nondisplaced. No ventricular heave. Regular. Normal S1-S2. 2/6 systolic murmur best heard at the apex. No rubs, or gallops. Pulmonary: Clear to auscultation bilaterally without wheezes, rales, or rhonchi. Abdomen: Soft, nontender, nondistended, with normoactive bowel sounds. No bruits noted. Extremities: 2+ radial pulses bilaterally; Allens's ok. 2+ posterior tibialis pulses bilaterally. No significant pitting edema or cyanosis. Psychiatric: Affect appears appropriate. Results & Data Vital Signs (Past 12 Hours) Vital Signs Temp Pulse Pulse Resp BP Pulse Ox 12/26/18 07:51 36.7 C 63 18 112/60 97 12/26/18 03:29 36.9 C 61 17 120/63 97 12/25/18 23:25 56 L 12/25/18 23:12 36.8 C 57 L 17 109/53 L 97 Laboratory Results Laboratory Results - last 24 hr 12/25/18 12/25/18 12/25/18 15:49 15:49 21:00 WBC 9.23 RBC 3.77 L Hgb 11.4 L Hct 34.1 L MCV 90.5 MCH 30.2 MCHC 33.4 RDW Std Deviation 48.7 H RDW Coeff of Isela 14.9 H Plt Count 217 MPV 10.5 H Immature Gran % (Auto) 0.2 Neut % (Auto) 68.1 Lymph % (Auto) 25.8 Sargent % (Auto) 4.9 Eos % (Auto) 0.8 Baso % (Auto) 0.2 Immature Gran # (Auto) 0.02 Neut # (Auto) 6.29 Lymph # (Auto) 2.38 Sargent # (Auto) 0.45 Eos # (Auto) 0.07 Baso # (Auto) 0.02 APTT PTT Ratio Sodium 137 Potassium 4.1 Chloride 106 Carbon Dioxide 21 Anion Gap 10.0 BUN 43 H Creatinine 1.29 H Est Cr Clr Drug Dosing 46.4 Est GFR ( Amer) 47.2 Est GFR (Non-Af Amer) 40.8 BUN/Creatinine Ratio 33.4 H Glucose 255 H POC Glucose 212 H Estimat Average Glucose Hemoglobin A1c Calcium 8.9 Phosphorus 2.5 Magnesium 1.9 Total Bilirubin 0.4 AST 45 H ALT 30 Alkaline Phosphatase 91 Troponin I 13.300 H* Total Protein 7.8 Albumin 3.3 L Globulin 4.5 H Albumin/Globulin Ratio 0.7 L TSH 3.550 Digoxin 12/25/18 12/26/18 12/26/18 21:04 00:09 03:13 WBC 9.66 RBC 3.52 L Hgb 10.5 L Hct 31.9 L MCV 90.6 MCH 29.8 MCHC 32.9 RDW Std Deviation 48.8 H RDW Coeff of Isela 14.9 H Plt Count 182 MPV 10.3 Immature Gran % (Auto) 0.2 Neut % (Auto) 58.4 Lymph % (Auto) 32.4 Sargent % (Auto) 7.1 Eos % (Auto) 1.7 Baso % (Auto) 0.2 Immature Gran # (Auto) 0.02 Neut # (Auto) 5.64 Lymph # (Auto) 3.13 Sargent # (Auto) 0.69 H Eos # (Auto) 0.16 Baso # (Auto) 0.02 APTT PTT Ratio Sodium Potassium Chloride Carbon Dioxide Anion Gap BUN Creatinine Est Cr Clr Drug Dosing Est GFR ( Amer) Est GFR (Non-Af Amer) BUN/Creatinine Ratio Glucose POC Glucose 202 H Estimat Average Glucose Hemoglobin A1c Calcium Phosphorus Magnesium Total Bilirubin AST ALT Alkaline Phosphatase Troponin I 14.300 H* Total Protein Albumin Globulin Albumin/Globulin Ratio TSH Digoxin 12/26/18 12/26/18 12/26/18 03:13 03:13 03:13 WBC RBC Hgb Hct MCV MCH MCHC RDW Std Deviation RDW Coeff of Isela Plt Count MPV Immature Gran % (Auto) Neut % (Auto) Lymph % (Auto) Sargent % (Auto) Eos % (Auto) Baso % (Auto) Immature Gran # (Auto) Neut # (Auto) Lymph # (Auto) Sargent # (Auto) Eos # (Auto) Baso # (Auto) APTT 58.7 H* PTT Ratio 2.2 Sodium 138 Potassium 3.9 Chloride 108 H Carbon Dioxide 23 Anion Gap 7.0 BUN 42 H Creatinine 1.04 Est Cr Clr Drug Dosing 57.4 Est GFR ( Amer) 61.3 Est GFR (Non-Af Amer) 52.9 BUN/Creatinine Ratio 40.3 H Glucose 173 H POC Glucose Estimat Average Glucose Hemoglobin A1c Calcium 8.7 Phosphorus Magnesium Total Bilirubin AST ALT Alkaline Phosphatase Troponin I 15.300 H* Total Protein Albumin Globulin Albumin/Globulin Ratio TSH Digoxin 0.6 L 12/26/18 03:13 WBC RBC Hgb Hct MCV MCH MCHC RDW Std Deviation RDW Coeff of Isela Plt Count MPV Immature Gran % (Auto) Neut % (Auto) Lymph % (Auto) Sargent % (Auto) Eos % (Auto) Baso % (Auto) Immature Gran # (Auto) Neut # (Auto) Lymph # (Auto) Sargent # (Auto) Eos # (Auto) Baso # (Auto) APTT PTT Ratio Sodium Potassium Chloride Carbon Dioxide Anion Gap BUN Creatinine Est Cr Clr Drug Dosing Est GFR ( Amer) Est GFR (Non-Af Amer) BUN/Creatinine Ratio Glucose POC Glucose Estimat Average Glucose 166 Hemoglobin A1c 7.4 H Calcium Phosphorus Magnesium Total Bilirubin AST ALT Alkaline Phosphatase Troponin I Total Protein Albumin Globulin Albumin/Globulin Ratio TSH Digoxin Diagnostic Findings Chest x-ray 12/25/2018: No acute cardiopulmonary findings per Radiology. Telemetry personally reviewed: No arrhythmia. Sinus rhythm. ECG personally reviewed: ECG 12/25/2018: Sinus rhythm 95 bpm. Cannot rule out inferior infarct. Anterior/anterolateral T-wave inversion. ECG 12/26/2018: NSR at [address]/T-wave abnormality, improved from prior ECG. Echo 07/29/2018: Normal LV size, wall motion, systolic function. EF 60-65%. Mild LVH. Mild to moderate MR. Moderate left atrial dilation. Medications Administered Current Inpatient Medications Acetaminophen (Tylenol) 650 mg PO Q4H PRN PRN Reason: Pain or Fever Stop: 01/24/19 19:52 Al Hydrox/Mg Hydrox/Simethicone (Maalox) 15 ml PO Q4H PRN PRN Reason: Dyspepsia Stop: 01/24/19 19:52 Ascorbic Acid (Vitamin C) 250 mg PO DAILY SEAN Stop: 01/25/19 08:59 Last Admin: 12/26/18 08:36 Dose: 250 mg Documented by: Atorvastatin Calcium (Lipitor) 80 mg PO HS [facility] Stop: 01/24/19 20:59 Last Admin: 12/25/18 21:04 Dose: 80 mg Documented by: Dextrose (Dextrose 50%) 25 - 50 ml IV UD PRN; Protocol PRN Reason: Hypoglycemia Protocol Stop: 01/24/19 20:59 Digoxin (Lanoxin) 0.125 mg PO DAILY@1600 [facility] Stop: 01/25/19 15:59 Docusate Sodium (Colace) 100 mg PO DAILY SEAN Stop: 01/25/19 08:59 Last Admin: 12/26/18 08:36 Dose: 100 mg Documented by: Ferrous Sulfate (Feosol) 325 mg PO DAILY [facility] Stop: 01/25/19 08:59 Last Admin: 12/26/18 08:35 Dose: 325 mg Documented by: Fish Oil ([place]-3 (Purified Fish Oil)) 1 gm PO QAM [facility] Stop: 01/25/19 08:59 Last Admin: 12/26/18 08:36 Dose: 1 gm Documented by: Glucagon (Glucagen) 1 mg IM UD PRN; Protocol PRN Reason: Hypoglycemia Protocol Stop: 01/24/19 20:59 Glucose (Glucose 40%) 15 - 30 gm PO UD PRN; Protocol PRN Reason: Hypoglycemia Protocol Stop: 01/24/19 20:59 Glucose (Dex4 Glucose) 4 - 8 tabs PO UD PRN; Protocol PRN Reason: Hypoglycemia Protocol Stop: 01/24/19 20:59 Heparin Sodium/Dextrose (Heparin Sodium/Dextrose) 25,000 units in 500 mls @ 27 mls/hr IV .[id number] [facility]; Protocol Stop: 01/24/19 21:14 Last Titration: 12/26/18 03:55 Dose: 1,350 units/hr, 27 mls/hr Documented by: Insulin Aspart (Novolog Flexpen) 0 units SC Q6 [facility] Stop: 01/25/19 11:59 Latanoprost (Xalatan Oph) 1 drops OPB PM [facility] Stop: 01/24/19 20:59 Last Admin: 12/25/18 21:05 Dose: 1 drops Documented by: Metoprolol Tartrate (Lopressor) 75 mg PO BID [facility] Stop: 01/24/19 20:59 Last Admin: 12/26/18 08:35 Dose: 75 mg Documented by: Miscellaneous (Order Awaiting Action) 1 ea N/A QS [facility] Stop: 01/25/19 00:00 Last Admin: 12/25/18 23:41 Dose: Not Given Documented by: Miscellaneous (Carbohydrates For Hypoglycemia) 15 - 30 gm PO UD PRN PRN Reason: Hypoglycemia Treatment Stop: 01/24/19 20:59 Miscellaneous Information (Consult Glycemic Management Pharmacy) 1 ea N/A UD PRN; Protocol PRN Reason: Consult Stop: 01/24/19 20:34 Multivitamins (Multivitamin Tab) 1 tab PO QAM [facility] Stop: 01/25/19 08:59 Last Admin: 12/26/18 08:36 Dose: 1 tab Documented by: Ondansetron HCl (Zofran) 4 mg IV Q6H PRN PRN Reason: Nausea Stop: 01/24/19 19:52 Potassium Chloride (Klor-Con M10) 10 meq PO QAM [facility] Stop: 01/25/19 08:59 Last Admin: 12/26/18 08:36 Dose: 10 meq Documented by: Vitamin D (Vitamin D3) 2,000 units PO QAM [facility] Stop: 01/25/19 08:59 Last Admin: 12/26/18 08:36 Dose: 2,000 units Documented by:
[2018-12-26] MEDS: ASPIRIN 81 MG ECTAB PO SCH (11:05)
[2018-12-26] MEDS ORDERED: INSULIN ASPART 100 UNITS/ML 3 ML PEN SC SCH (12:00)
[2018-12-26] MEDS ORDERED: MIDAZOLAM HCL 1 MG/ML 2ML VIAL ONE (12:09)
[2018-12-26] MEDS ORDERED: NITROGLYCERIN/D5W 100MCG/ML 20ML SYR ONE (12:09)
[2018-12-26] MEDS ORDERED: NiCARDipine HCL INJ 2.5 MG/ML 10 ML AMP ONE (12:09)
[2018-12-26] MEDS ORDERED: HEPARIN (PORCINE) 1000 UNIT/ML 10 ML (CATH LAB USE ONLY) ONE (12:09)
[2018-12-26] MEDS ORDERED: fentaNYL citrate 100 MCG/2 ML VIAL ONE (12:09)
--- NOTE | 2018-12-26 14:27 | Pre Anesthesia Assessment ---
Date of Service December 26, 2018 Pre Sedation Assessment Vital Signs Temp Pulse Pulse Resp BP BP Pulse Ox 12/26/18 10:52 36.7 C 54 L 18 117/66 97 12/26/18 07:51 36.7 C 63 18 112/60 97 12/26/18 03:29 36.9 C 61 17 120/63 97 12/25/18 23:25 56 L 12/25/18 23:12 36.8 C 57 L 17 109/53 L 97 12/25/18 20:00 70 12/25/18 19:54 36.8 C 79 18 124/59 L 97 12/25/18 19:23 80 17 120/59 L 99 12/25/18 18:30 67 24 120/64 99 12/25/18 18:00 72 17 111/59 L 98 12/25/18 17:49 70 20 123/67 98 12/25/18 17:30 73 17 99 12/25/18 17:00 65 16 98 12/25/18 16:30 72 22 97 12/25/18 16:24 77 22 115/62 12/25/18 16:23 98 12/25/18 16:00 84 25 H 98 12/25/18 15:54 81 17 96 12/25/18 15:26 36.7 C 140 H 20 109/67 99 Cardiovascular + regular rate + murmur Respiratory normal respiratory effort, lungs clear to auscultation Pre-Sedation Airway Assessment Smoking Status: Never smoker Mallampati Class: III ASA: ASA3 NPO Status Date of Last Intake of Fluids: 12/25/18 Last Oral Intake of Fluids Comment: NPO prior to midnight Date of Last Intake of Solid Food: 12/25/18 Last Intake of Solids Comment: NPO prior to midnight Procedure Planning Contraindications for Sedation: none Current Medications Reviewed: Yes Notes The planned sedation has been discussed with the patient. Informed Consent was obtained. I have identified the patient, determined the appropriateness of sedation and have assessed the patient immediately prior to the procedure. All medicine(s) and interventions are by my order.
--- NOTE | 2018-12-26 15:37 | Cardiac Catheterization ---
Cardiac Cath Procedure Full Procedure Date December 26, 2018 Pre-Procedure Diagnosis Pre-Procedure Diagnosis: Non STEMI AUC Score AUC Score: 9 Post-Procedure Diagnosis Post-Procedure Diagnosis: Moderate CAD and Elevated Intracardiac Pressures Procedure(s) Performed Procedure(s) Performed: Coronary Angiography and Left Heart Cath Biology Department Chair Lucas Navarro MD [employer](s) Yousuf Dia Estimated Blood Loss Estimated Blood Loss: < 25 ml Medication(s) Medication(s): Fentanyl, Heparin, Lidocaine 1%, Nicardipine and Versed Summary of Findings Coronary angiography: 1. Left main coronary artery: Ostial LMCA with possible significant stenosis (50-70%) vs bend in the coronary. Distal LMCA 10-20%. 2. Left anterior descending: The LAD is a large caliber vessel that wraps around the apex. The LAD gives rise to a medium caliber D1 and a small caliber D2. Proximal D2 50%. No significant CAD within the LAD. 3. Circumflex: The circumflex is a codominant vessel. No significant CAD within the circumflex. The circumflex gives rise to a large caliber OM1 with proximal 30% stenosis. Circumflex PDA and PL branches without significant CAD. 4. Right coronary artery: The RCA is a medium caliber vessel that gives rise to a small PDA. No significant CAD within the RCA system. Left heart catheterization: 1. Left ventriculography was not performed. 2. LVEDP 22mmHg. 3. Peak to peak gradient across the aortic valve was approximately 8mmHg. Sedation start time: 2:53 p.m. Sedation end time: 3:30 p.m. Procedural details: 1. Angiography of the LMCA was performed with 6 Indonesian JL 3.5 diagnostic catheter. 2. Left heart catheterization and angiography of the RCA was performed with 6 Indonesian JR4 diagnostic catheter. Impression: 1. Questionable ostial LM CA disease. 2. Nonobstructive CAD involving OM1 and small D2. 3. Codominant system. 4. Mild aortic transvalvular gradient of approximately 8mmHg. 5. Elevated LVEDP; 22mmHg. Plan: 1. Images were reviewed with Dr. Lara of interventional Cardiology. He plans to perform IVUS of the LMCA. 2. Optimize medical therapy. Hemodynamics Rest Ao:: 114/48 Final Ao: 122/53 LV: 127/7/22 Recommendations Recommendations: Management Recommendatons (IVUS of LMCA) Specimens Specimens: None Radiation Exposure (mGy) 1224 mGy. Fluoro time 4.8 min Contrast (mls) 95 ml Procedural Complication(s) None Disposition remains in earthmoving labourer for interventional cardiology to perform IVUS ACC Data: Temperature Regulator Cardiac Status Clinical evaluation leading to the procedure CAD Presenation: Non STEMI Anginal Classification: CCS IV Heart Failure: No Cardiogenic Shock within 24 Hours: No Cardiac Arrest within 24 Hours: No Imaging Studies Past 6 Months: Yes Stress Studies Past 6 Months: No Standard Exercise Test: No Stress Echocardiogram: No Stress Testing w/SPECT MPI: No Cardiac CTA: No Coronary Anatomy Dominant: Co-Dominant Left Main (% Stenosis): Ostial (Possible CAD involving ostial LMCA vs bend in the vessel.) and Distal (10-20%) LAD (% Stenosis): Normal D1 (% Stenosis): Normal D2 (% Stenosis): Proximal (50%) Circumflex (% Stenosis): Normal OM1 (% Stenosis): Proximal (30%) L PL1 (% Stenosis): Normal L PL2 (% Stenosis): Normal L PDA (% Stenosis): Normal RCA (% Stenosis): Normal R PDA (% Stenosis): Normal Left Ventricular Angiography EF (%): n/a Diagnostic Physicians Name: Lucas Navarro MD Status: Elective Closure Device Percutaneous Entry Location: Radial Closure Device: Radial Band Recommendations: Management Recommendatons (IVUS of LMCA)
[2018-12-26] MEDS ORDERED: DIGOXIN 0.125 MG TAB PO SCH (16:00)
[2018-12-26] MEDS ORDERED: Nursing to Pharmacy Communication ONE (16:20)
--- NOTE | 2018-12-26 17:00 | Post Anesthesia Assessment ---
Date of Service December 26, 2018 Post Sedation Assessment Vital Signs Temp Pulse Pulse Resp BP BP Pulse Ox 12/26/18 16:45 61 18 127/65 98 12/26/18 16:29 60 12/26/18 16:16 36.6 C 57 L 18 120/64 95 12/26/18 16:00 36.6 C 62 18 122/53 L 96 12/26/18 10:52 36.7 C 54 L 18 117/66 97 12/26/18 07:51 36.7 C 63 18 112/60 97 12/26/18 03:29 36.9 C 61 17 120/63 97 12/25/18 23:25 56 L 12/25/18 23:12 36.8 C 57 L 17 109/53 L 97 12/25/18 20:00 70 12/25/18 19:54 36.8 C 79 18 124/59 L 97 12/25/18 19:23 80 17 120/59 L 99 12/25/18 18:30 67 24 120/64 99 12/25/18 18:00 72 17 111/59 L 98 12/25/18 17:49 70 20 123/67 98 12/25/18 17:30 73 17 99 12/25/18 17:00 65 16 98 Recovery Score Activity: Moves 4 extremities Respiration: Deep Breath/Cough Circulation: +/-20% PreAnes Value Consciousness: Fully Awake Oxygen Saturation: > 92% On Room Air Post Sedation Plan On clinical assessment, the patient appears to have tolerated the sedation without complications. Patient is recovering as anticipated. Patient will continue to be monitored by nursing and may be discharged when sedation discharge criteria are met per below protocol. Upon Completions of procedure and additional 15 minutes continue every 5 minute vital signs and the P.A.R. score; then discharge to a Phase I or Fast Track to Phase II per the following guidelines: * Discharge Patient to appropriate Phase II area if PAR is 8 or greater or return to pre- procedure baseline. The post - procedure orders will be as directed. * If PAR score is less than 8 or not return to pre-procedure baseline then patient will follow Phase I monitoring till PAR is reached for Phase II. The Phase I may be done in procedure room or may call to secure a Phase I area. * If naloxone or flumazenil are used for reversal, hold in Phase I for continued monitoring from when last reversal dose was given for a minimum of 60 minutes or longer pending the nurse and/or physician discretion of patient condition before discharge to Phase II. Please call the Sedation Physician to re-evaluate and complete post-note for discharge to Phase II area. Do NOT discharge from procedure sedation or Phase 1 until post- sedation evaluation note is complete by procedure /sedation MD Sedation Discharge Instructions to be given to the patient at discharge to home.
[2018-12-26] MEDS: Heparin Adult STANDARD Wt-Based Dextrose 5% 25,000 units/500 mL IV SCH (17:03)
[2018-12-26] MEDS: APIXABAN 5 MG TABLET PO SCH (20:40)
[2018-12-26] MEDS: ATORVASTATIN 40 MG TAB PO SCH (20:41)
[2018-12-26] MEDS: LATANOPROST 0.005% OP SOLN 2.5 ML BTL OPB SCH (20:42)
--- NOTE | 2018-12-26 22:51 | Cardiac Catheterization ---
Cardiac Cath Procedure Full Procedure Date December 26, 2018 Pre-Procedure Diagnosis Pre-Procedure Diagnosis: Non STEMI AUC Score AUC Score: 8 Post-Procedure Diagnosis Post-Procedure Diagnosis: Moderate CAD Procedure(s) Performed Procedure(s) Performed: Coronary Angiography and IVUS Colleter Patrick Lara MD Assurance Manager(s) Yousuf Dia Estimated Blood Loss Estimated Blood Loss: < 25 ml Medication(s) Medication(s): Fentanyl, Heparin, Nicardipine, Nitroglycerin and Versed Summary of Findings For full details of patient's coronary angiography please see cath report dictated by Dr. Mcdaniel. Briefly patient found to have mild non-obstructive CAD. Angiographically there was suggestion of possible ostial/proximal LM disease. Decision to further evaluate with IVUS. IVUS procedure: LM cannulated with JL3.5 guide BMW wire placed into distal LAD IVUS catheter placed into mid LAD for pullback. IVUS showed mild to moderate, calcified ostial LAD disease (MLA 8.1 mm2) IVUS of LM showed eccentric plaque of distal segment (MLA >10 mm2). Mild eccentric calcified plaque at ostium. Post procedure angiography showed no apparent coronary complications. Summary: 1. Mild, calcified, eccentric, non-obstructive LM disease. 2. Mild to moderate non-obstructive ostial LAD disease. 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
[2018-12-27 06:09] LABS: Partial Thromboplastin Time 26.8 Seconds (21.0-31.0)
[2018-12-27] MEDS: INSULIN ASPART 100 UNITS/ML 3 ML PEN SC SCH (07:59)
[2018-12-27] MEDS: ASCORBIC ACID 500 MG TAB PO SCH (08:03)
[2018-12-27] MEDS: CHOLECALCIFEROL 1,000 UNITS TAB PO SCH (08:04)
[2018-12-27] MEDS: METOPROLOL TARTRATE 25 MG TAB PO SCH (08:05)
[2018-12-27] MEDS: POTASSIUM CHLORIDE 10 MEQ TABCR PO SCH (08:05)
[2018-12-27] MEDS: MULTIVITAMIN TAB PO SCH (08:05)
[2018-12-27] MEDS: OMEGA-3 (PURIFIED FISH OIL) 1 GM CAP PO SCH (08:06)
[2018-12-27] MEDS: ASPIRIN 81 MG ECTAB PO SCH (08:06)
[2018-12-27] MEDS: APIXABAN 5 MG TABLET PO SCH (08:06)
[2018-12-27] MEDS: FERROUS SULFATE 325 MG TAB PO SCH (08:06)
[2018-12-27] MEDS: DOCUSATE SODIUM 100 MG CAP PO SCH (08:07)
[2018-12-27] MEDS ORDERED: INSULIN GLARGINE SOLOSTAR 100 UNITS/ML 3 ML PEN SC SCH (09:00)
--- NOTE | 2018-12-27 16:22 | Discharge Summary ---
Date of Service December 27, 2018 Admission HPI Per Admitting Provider 73 y/o F with PMH Afib, DM2, HTN, HLD presents to [facility] with complaints of chest pressure. Of note, pt was admitted in Jul 2018 for new onset Afib with RVR and was dc'd on Eliquis 5 mg BID and metoprolol 75 mg BID. Pt states that this AM, felt heaviness in her chest all of a sudden. Checked home BP cuff, which alerted pt that it detected an irregular rhythm. Pt subsequently called cardiology office, which recommended to pt to recheck BP and come into ER if still irregular rhythm. Pt has associated R arm achiness, and admits to sweating, nausea, and fatigue. Last such occurrence was in September, which resolved on its own. Pt notes recent travel to [facility] for wedding over the weekend and had some nausea on car ride home yesterday, which she states she normally only gets when she feels she is in A fib. Pt was last seen by Dr. Uribe 11/14 and recommended to cont current Afib management and follow-up in 12 months. Pt denies any other acute concerns or complaints. ER Course: EKG: NSR, T wave inversion anterolateral leads. CXR- No acute cardiopulmonary findings. Pt given ASA 324 mg. Labs remarkable for trop 13.3. Surgical Hx: Hysterectomy. Social: No history of drinking or smoking - lives with her . Family: Mother had a history of AF, father following an DE. Principal Diagnosis n stemi afib rvr Discharge Exam Constitutional well developed and average body habitus Eyes no conjunctival abnormality and no scleral abnormality Neck normal visual inspection and trachea midline Respiratory normal respiratory effort; no respiratory distress Auscultation: lungs clear to auscultation bilaterally Cardiovascular RRR, no murmur, no edema Gastrointestinal (Abdomen) normal bowel sounds, soft, nontender, no hepatosplenomegaly Musculoskeletal no cyanosis or clubbing, extremities motor strength 5/5 Discharge Data Allergies Allergy/AdvReac Type Severity Reaction Status Date / Time Sulfa (Sulfonamide Allergy Swelling Unverified 12/25/18 16:59 Antibiotics) of Lip/Tongue/Throat sulfamethoxazole Allergy Swelling Unverified 12/25/18 16:59 [From Bactrim] of Lip/Tongue/Throat trimethoprim [From Bactrim] Allergy Swelling Unverified 12/25/18 16:59 of Lip/Tongue/Throat Consultations 12/25/18 17:04 ED Decision to Admit Stat 12/25/18 19:53 Consult Cardiology Routine 12/26/18 09:18 Consult Cardiac Catheterization Routine Procedures Performed Operation Date: 12/26/18 13:00 Actual Procedures p Cath, Left with Cors and Vent - Lucas Navarro MD s Cineradiography w/Routine Exam - Sudeep Lara MD s IVUS Coronary Single Vessel - Sudeep Lara MD Ordered Studies 12/26/18 10:02 CL Cath Imgs for PACS use only Routine Hospital Course (1) Elevated troponin: 73yowith a PMHx of Afib, HTN, HLD, DMII who presents with chest heaviness found to have elevated troponins. modest increase in troponin patient has N STEMI cardiology evaluation included Left heart cath with non occlusive disease, cardiology feels there was possible transient occlusion the opened prior to cath, given RWMA and dynamic ecg changes associated with symptoms and troponin elevation, will treat medically, increase metoprolol, add asa 81 mg and increase atorvostatin to 80 mg Paroxysmal Afib -currently NSR anticoagulation with eliquis,. Cont increased metoprolol, digoxin continues due to controlled blood pressure without arb/hctz, will hold but consider adding back for renal protection once it is assured she will tolerate increased metoprolol -TSH normal HTN metoprolol for rate control of a fib, will cont -Held home losartan-HCTZ on admission DMII -resume home metformin HLD -continue atorvastatin, increased to 80 mg from 20mg Anemia of chronic disease -cont home iron 325 mg daily -stable H/H, Acute kidney injury evidenced by elevation of her creatinine from her baseline, will pay attention and medication dosing is still hydration if needed Code Status: Full code Total Time Total Time Spent Total Time Spent (In Minutes): greater than 30 minutes were required to prepare discharge Discharge Plan Discharge Items Patient Disposition: Home - Self-Care Reason For Visit: TROPS Discharge Diagnosis: suspected heart attack, minor, resolved Discharge Goals: Decrease discomfort and Diagnostic testing Activity: As commented below Activity Comment: no lifting right hand for additional 2 days Non-emergency contact: Primary Care Provider and Residential Treatment Counselor Call non-emergency contact if: you have any medication questions Follow-up/Referrals: Mir Uribe MD [Physician] - 01/17/19 10:15 am (Echo at 9:30 on 12/20) Brian Byrnes MD [Primary Care Provider] - 01/03/19 11:45 am (Please, follow up with Dr. Tanner on TuesdayJanuary 03 at 11:45 am. *If you need to change this appointment, call the office at [phone].) Diet: Carb Consistent or DM2 Addtl Provider Instructions: do not restart your metformin unitl tuesday12/28/18 ACTIVITY RECOMMENDATIONS: Excess manipulation of the wrist should be avoided for the next 24-48 hours. * No lifting over 2 pounds (approximately a 1/2 gallon of milk) with the utilized arm for 24 hours. * No strenuous activity such as bowling or tennis for 3 days. * Keep the site of the procedure covered with a bandage for 24 hours. *You may shower the day after the procedure. Do not take a tub bath or submerge the puncture site in water for the next 3 days. *Do not operate any motorized equipment for 3 days. SPECIAL CARE INSTRUCTIONS: The site may be slightly bruised and sore following your procedure. Should any of the following occur, contact the Dr. who performed your procedure. 1. Redness/inflammation, swelling, chills, or fever, or colored drainage at procedure site within 3-7 days after your procedure. 2. Coldness, discoloration, ongoing numbness, severe pain, or swelling. Expect mild tingling of hand and tenderness at the puncture site for up to three days. If this persists beyond three days, or other symptoms develop, notify the Dr. who performed your procedure. BLEEDING: If the procedure site on your wrist begins to bleed, do not panic 1. Place 1 or 2 fingers firmly just slightly above the insertion site to stop the bleeding. You may be able to feel your pulse as you hold pressure. 2. Lift your finger after 5 minutes to see if the bleeding has stopped. 3. Once the bleeding has stopped, gently wipe the wrist area clean with a bandage. * If the bleeding from your wrist does not stop after 10 minutes, or if there is a large amount of bleeding or spurting, call 911 (do not drive yourself to the hospital). SKIN IRRITATION: * You may experience some redness and/or swelling in the area where radiation was administered. If any skin irritation occurs, please contact your family physician. FOLLOW UP VISIT: Keep any scheduled doctor appointments. Prescriptions: New atorvastatin 80 mg tablet 80 mg PO DAILY Qty: 30 RF: 5 digoxin 125 mcg Tablet 0.125 mg PO DAILY@1600 Qty: 30 RF: 5 metoprolol tartrate 100 mg tablet 100 mg PO BID Qty: 60 RF: 0 aspirin [Ecotrin Low Strength] 81 mg Tablet,Delayed Release (Dr/Ec) 81 mg PO QAM Qty: 90 RF: 3 Continued ferrous sulfate 325 mg (65 mg iron) tablet 325 mg PO DAILY RF: 0 ascorbic acid (vitamin C) 250 mg tablet 250 mg PO DAILY RF: 0 multivitamin Tablet 1 tab PO QAM RF: 0 latanoprost 0.005 % Drops 1 drp OPB PM RF: 0 potassium chloride 10 mEq Tablet Extended Release 10 meq PO QAM RF: 0 Restasis 0.05 % Dropperette 1 drp OPB BID RF: 0 cholecalciferol (vitamin D3) [Vitamin D3] 2,000 unit Capsule 2,000 unit PO QAM RF: 0 omega 0-pfc-evr-fish oil [Fish Oil] 1,000 mg (120 mg-180 mg) Capsule 1 cap PO QAM RF: 0 Eliquis 5 mg Tablet 5 mg PO BID Qty: 30 RF: 0 docusate sodium [Stool Softener] 100 mg Capsule 100 mg PO DAILY RF: 0 metformin 1,000 mg Tablet 1,000 mg PO BIDM Qty: 0 RF: 0 Discontinued metoprolol tartrate 75 mg tablet 75 mg PO BID Qty: 30 RF: 0 digoxin 125 mcg tablet 125 mcg PO DAILY Qty: 90 RF: 0 atorvastatin 20 mg Tablet 20 mg PO HS RF: 0 losartan-hydrochlorothiazide 100-25 mg Tablet 1 tab PO QAM RF: 0 Stand-Alone Forms: [facility] Discharge Orders: Discharge Order (Routine); Ordered 12/27/18 Ordered By: Kofi Interiano Admission Data Admit Date/Time: 12/25/18 18:29 Attending Provider: Kofi Interiano Admit Provider: Callum Singh Primary Care Provider: Brian Byrnes V. Other Providers: Kofi Interiano ; Francisco Bess ; Lucas Navarro Service: Telemetry Other Interventions: Discharge Summary Assessment (RN) Last Done: 12/27/18 12:47 DC Date/Time DO NOT enter until pt leaves facility: 12/27/18 13:28
== END 2018-12-27 13:28 | disposition home or self-care (01) | DRG 281 ==
LOC: ED 15:19 → 2E 18:29